=== PATIENT | male | born 1980 | race Caucasian/White ===

== ENCOUNTER 2021-04-18 21:39 | Emergency (ER) | payer BC ==
[2021-04-18 21:45] VITALS: BP 122/76; PULSE 72; RESP 18; TEMP 98.1
[2021-04-18] MEDS ORDERED: TOPICAL SKIN ADHESIVE 1 EACH AMP TOPICAL ONE (22:09)
--- NOTE | 2021-04-18 22:32 | ED ---
Wound/Laceration HPI - General Chief Complaint: Wound/Laceration Stated Complaint: Finger Lac Time Seen by Provider: 04/18/21 21:57 Source: patient, RN notes reviewed Mode of arrival: ambulatory Limitations: no limitations - History of Present Illness Initial Comments: 41-year-old white male, alert and oriented 4, presents to the emergency room with laceration to his left middle finger along the lateral edge proximately 1 cm. Patient states that it occurred 2 hours ago while on his boat, on a piece of steel. Patient denies any medical history no medications on a daily basis and tetanus is up-to-date -: hour(s) (2) Place: outdoors Patient Tetanus UTD: Yes Context: accidental (Cut on a piece of metal on a boat) Associated Symptoms: none Treatments Prior to Arrival: bandage - Related Data Allergies Allergy/AdvReac Type Severity Reaction Status Date / Time No Known Allergies Allergy Verified 04/18/21 21:45 Review of Systems ROS Statement: Those systems with pertinent positive or pertinent negative responses have been documented in the HPI. ROS Other: All systems not noted in ROS Statement are negative. Past Medical History Past Medical History: No Reported History History of Any Multi-Drug Resistant Organisms: None Reported Past Surgical History: No Surgical Hx Reported Additional Past Surgical History / Comment(s): lasik eye surgery Past Psychological History: No Psychological Hx Reported Smoking Status: Light tobacco smoker Past Alcohol Use History: Occasional Past Drug Use History: None Reported General Exam Limitations: no limitations General appearance: alert, in no apparent distress Head exam: Present: atraumatic, normocephalic, normal inspection Eye exam: Present: normal appearance, PERRL, EOMI. Absent: scleral icterus, c onjunctival injection, periorbital swelling ENT exam: Present: normal exam, mucous membranes moist Neck exam: Present: normal inspection, full ROM. Absent: tenderness, meningismus, lymphadenopathy Respiratory exam: Present: normal lung sounds bilaterally. Absent: respiratory distress, wheezes, rales, rhonchi, stridor Cardiovascular Exam: Present: regular rate, normal rhythm, normal heart sounds. Absent: systolic murmur, diastolic murmur, rubs, gallop, clicks Extremities exam: Present: normal inspection, full ROM, normal capillary refill. Absent: tenderness, pedal edema, joint swelling, calf tenderness Neurological exam: Present: alert, oriented X3, CN II-XII intact Psychiatric exam: Present: normal affect, normal mood Skin exam: Present: warm, dry, normal color, other (1.5 cm laceration to the lateral aspect of his left middle finger). Absent: rash Course Vital Signs 04/18/21 21:40 Temperature 98.1 F Pulse Rate 72 Respiratory 18 Rate Blood Pressure 122/76 O2 Sat by Pulse 98 Oximetry Procedures - Laceration Laceration #1 Indication: laceration Site: hand (Left third digit) Description: linear Type of Sutures: other (Dermal glue) Patient Tolerated Procedure: well Medical Decision Making - Medical Decision Making 1.5 cm superficial laceration to left third digit closed with dermal glue after irrigated with approximately 50 mL of saline. patient tetanus shot up-to-date. Patient discharged home and directed to return for any signs and symptoms of infection, case discussed with Dr. Infante. Disposition Clinical Impression: Laceration Disposition: HOME SELF-CARE Condition: Good Instructions (If sedation given, give patient instructions): Laceration (ED), Skin Adhesive Care (ED) Additional Instructions: Keep wound clean and dry, return if any signs and symptoms of infection including fever, redness, drainage. Is patient prescribed a controlled substance at d/c from ED?: No Referrals: None,Stated [Primary Care Provider] - 1-2 days Time of Disposition: 22:31
== END 2021-04-18 22:43 | disposition home or self-care (01) ==
LOC: EC 21:39
DX: S61.213A Laceration without foreign body of left middle finger without damage to nail, initial encounter (principal); W26.8XXA Contact with other sharp object(s), not elsewhere classified, initial encounter; F17.210 Nicotine dependence, cigarettes, uncomplicated; Y92.814 Boat as the place of occurrence of the external cause
CPT/HCPCS: 12001; 99282